=== PATIENT | male | born 1980 | race Caucasian/White ===

== ENCOUNTER 2022-09-27 07:16 | Day surgery (SDC) | payer OTHER ==
[~2022-09-27 07:16] MED LIST: Dextrose 5%-0.45% NaCl 1,000 ML IV SCH; Midazolam 1 MG/ML 2 ML SDV ONE; Sodium Chloride 0.9% 10 ML Syringe FLUSH PRN; Sodium Chloride 0.9% 10 ML Syringe FLUSH SCH; fentaNYL 100 MCG/2 ML SDV ONE
[2022-09-27] MEDS ORDERED: fentaNYL 100 MCG/2 ML SDV IV ONE ×3 (07:17→08:15)
[2022-09-27] MEDS ORDERED: Midazolam 1 MG/ML 2 ML SDV IV ONE ×3 (07:17→08:16)
== END 2022-09-27 10:00 | disposition home or self-care (01) ==
LOC: DL.ENDO 07:16
PROVIDERS: ATTEND Internal Medicine Gastroenterology
DX: K25.9 Gastric ulcer, unspecified as acute or chronic, without hemorrhage or perforation (principal); K22.89 Other specified disease of esophagus; E03.9 Hypothyroidism, unspecified; F41.1 Generalized anxiety disorder; Z79.899 Other long term (current) drug therapy; Z79.890 Hormone replacement therapy
CPT/HCPCS: 87077; J2250; J3010; J7042

== ENCOUNTER 2024-02-03 05:23 | Day surgery (SDC) | payer OTHER ==
[2024-02-03] MEDS ORDERED: fentaNYL 100 MCG/2 ML SDV IV ONE (05:24)
[2024-02-03] MEDS ORDERED: Midazolam 1 MG/ML 2 ML SDV IV ONE (05:24)
[2024-02-03] MEDS: Dextrose 5%-0.45% NaCl 1,000 ML IV SCH (05:43)
[2024-02-03] MEDS ORDERED: fentaNYL 100 MCG/2 ML SDV ONE (06:15)
[2024-02-03] MEDS ORDERED: Midazolam 1 MG/ML 2 ML SDV ONE (06:15)
[2024-02-03] MEDS: fentaNYL 100 MCG/2 ML SDV IV ONE ×2 (06:26→06:27)
[2024-02-03] MEDS: Midazolam 1 MG/ML 2 ML SDV IV ONE ×6 (06:27→06:32)
== END 2024-02-03 07:48 | disposition home or self-care (01) ==
LOC: DL.ENDO 05:23
PROVIDERS: ATTEND Internal Medicine Gastroenterology
DX: Z12.11 Encounter for screening for malignant neoplasm of colon (principal); K64.8 Other hemorrhoids
CPT/HCPCS: G0121; J2250; J3010; J7042

== ENCOUNTER 2024-03-29 07:26 | Emergency (ER) | payer OTHER ==
[2024-03-29] MEDS: Ondansetron 4 MG/2 ML SDV IVPUSH ONE (07:54)
[2024-03-29] MEDS: Sodium Chloride 0.9% 10 ML Syringe FLUSH PRN (07:54)
[2024-03-29 07:58] LABS: BASOPHILS PERCENT AUTO 0.2 % (0.0-1.0); HEMATOCRIT 43.9 % (40.0-54.0); HEMOGLOBIN 15.3 g/dL (14.0-18.0); MEAN CORPUSCULAR HEMOGLOBIN 30.5 pg (27.0-34.0); MEAN CORPUSCULAR HGB CONC 34.9 g/dL (33.0-35.0); MEAN CORPUSCULAR VOLUME 87.5 fL (80-100); MONOCYTES PERCENT AUTO 8.9 % (2-8); NEUTROPHILS PERCENT AUTO 73.9 % (42.2-75.2); PLATELET COUNT,PLT 247 10^3/uL (150-450); RED BLOOD CELL COUNT 5.02 10^6/uL (4.6-6.2)
[2024-03-29 08:22] LABS: A/G RATIO 1.4; ALANINE AMINOTRANSFERASE,ALT 31 U/L (16-63); ALBUMIN 4.6 g/dL (3.4-5.0); ALKALINE PHOSPHATASE 84 U/L (46-116); AMYLASE 53 U/L (25-115); ANION GAP 17.2 mEq/L (7-13); ASPARTATE AMNIOTRANSFERASE,AST 18 U/L (15-37); BILIRUBIN TOTAL 0.8 mg/dL (0.2-1.0); BLOOD UREA NITROGEN,BUN 14 mg/dL (7-18); BUN/CREATININE RATIO 12.7 (No establ ref range); CALCIUM 9.7 mg/dL (8.5-10.1); CARBON DIOXIDE,CO2 24 mmol/L (21-32); CHLORIDE,CL 101 mmol/L (98-107); ESTIMATED GFR 84 mL/min (>=60); GLUCOSE RANDOM 113 mg/dL (70-99); LIPASE 26 U/L (16-77); POTASSIUM,K 4.2 mmol/L (3.5-5.1); SODIUM,NA 138 mmol/L (136-145)
[2024-03-29 08:23] LABS: APPEARANCE,URINE CLEAR (CLEAR); BILIRUBIN,URINE NEGATIVE (NEGATIVE); COLOR,URINE YELLOW (YELLOW); GLUCOSE,URINE NEGATIVE (NEGATIVE); KETONES,URINE 40 (NEGATIVE); LEUKOCYTE ESTERASE,URINE NEGATIVE (NEGATIVE); NITRITE,URINE NEGATIVE (NEGATIVE); OCCULT BLOOD,URINE NEGATIVE (NEGATIVE); PH,URINE 8.5 (5.0-9.0); PROTEIN,URINE 30 (NEGATIVE); UROBILINOGEN,URINE 0.2 mg/dL (0.2-1.0)
[2024-03-29 08:24] LABS: MAGNESIUM 1.8 mg/dL (1.8-2.4)
[2024-03-29 08:25] LABS: C-REACTIVE PROTEIN < 0.50 ng/dL (<=0.50)
[2024-03-29] MEDS: Sodium Chloride 0.9% 1,000 ML IV ONE (08:34)
[2024-03-29] MEDS: Iopamidol 612 MG/ML 100 ML Bottle IVPUSH ONE (08:48)
[2024-03-29] MEDS: Ketorolac 30 MG/ML SDV IVPUSH ONE (08:56)
[2024-03-29 08:57] LABS: BACTERIA,URINE FEW /HPF (0-FEW/HPF); EPITHELIAL CELLS,URINE RARE /HPF (NOT SEEN); MUCUS,URINE OCCASIONAL /LPF (NOT SEEN); RBC,URINE 0-5 /HPF (0-5); WBC,URINE NOT SEEN /HPF (0-5/HPF)
[2024-03-29] MEDS: Benzocaine 20% Topical Spray UD MUCMEM ONE (09:40)
== END 2024-03-29 11:04 ==
LOC: DL.ED 07:26
DX: K56.609 Unspecified intestinal obstruction, unspecified as to partial versus complete obstruction (principal); Z79.899 Other long term (current) drug therapy
CPT/HCPCS: 36415; 74018; 74177; 80053; 81001; 82150; 83690; 83735; 84484; 85025; 86140; 93005; 93010; 96361; 96374; 96375; 99285; 99285-25; A9270-GY; J1885; J2405; J3490; J7030; Q9967